=== PATIENT | female | born 1980 | race African-American/Black ===

== ENCOUNTER 2018-11-23 19:55 | Emergency (ER) | payer OTHER ==
[~2018-11-23] VITALS: Ht 165.1 cm; Wt 65.8 kg
[2018-11-23 20:27] VITALS: BP 119/88
--- NOTE | 2018-11-23 20:50 | NUR ---
PT BIB SELF C/O GENERALIZED ITCHING, AND SORETHROAT X1 WEEK. PT IN NO RR DISTRESS, NO SOB. PT SITTING IN CHAIR IN NO DISTRESS.
[2018-11-23 21:06] VITALS: BP 112/81
--- NOTE | 2018-11-23 21:06 | NUR ---
DISCHARGE PAPERS GIVEN TO PT. PT STATES DECREASED ITCHING. VSS. RX OF BENADRYL AND PREDNISONE GIVEN. INSTRUCTED TO F/U WITH PCP AND WHEN TO RETURN TO ER. PT VERBALLIZED UNDERSTANDING OF DC INSTRUCTIONS. ALL QUESTIONS ANSWERED.
== END 2018-11-23 21:06 | disposition home or self-care (01) ==
LOC: MED 19:55
DX: T78.40XA Allergy, unspecified, initial encounter (principal); R21 Rash and other nonspecific skin eruption; Z98.890 Other specified postprocedural states; X58.XXXA Exposure to other specified factors, initial encounter
CPT/HCPCS: 99283